=== PATIENT | female | born 1985 | race Caucasian/White ===

== ENCOUNTER 2022-09-29 13:00 | Emergency (ER) | payer BC, SELFPAY ==
[2022-09-29 13:23] VITALS: BP 99/62; PULSE 65; RESP 16; TEMP 37.3; O2SAT 99; BMI 19.4
--- NOTE | 2022-09-29 14:20 | ED_ITS ---
HPI - General Adult General Date Seen: 09/29/22 Chief complaint: Eye Problems Stated complaint: Post concussion tinnitus, blurred vision Time Seen by Provider: 09/29/22 13:30 Source: patient Mode of arrival: ambulatory Limitations: no limitations History of Present Illness HPI narrative: Patient is a 36-year-old woman who comes in because of concerns about her eyes. She starts by telling me that in March of 2021 she had a fall and a concussion. Apparently in January of 2022 she developed tinnitus and hyper accussis this in her right ear which she thinks was post concussive. She also developed some visual symptoms around that time. She says that her tinnitus had waxed and waned with hyperacusis this got worse and she just saw ENT a week ago and she was told that her hearing was slightly low but still in the normal range, the rest of her exam was normal, and she was prescribed prednisone as well as a muscle relaxer. She says she is going to get some sort of special headphones which are supposed to help with noise reduction but she will not have those for few weeks. A week ago, she was walking in [place], apparently her dogs are rabbit and took off. She was pulled to the ground, and says she was careful not to hit her head, but since then she has been having some symptoms which she worries might be related to concussion. She was seen in [facility] ER few days ago for these symptoms, but presents here today because she is noting photophobia and difficulty watching a cartoon with her daughter last night because she was having trouble tracking the figures on the TV. Drilling down on the real issue, she seems to have concerns that no one has done any imaging and that there might be something underlying all of this that has nothing to do with concussion. Related Data Home Medications Medication Instructions Recorded Confirmed benzoyl peroxide 5 % topical topical DAILY 09/29/22 cleanser clindamycin phosphate 1 % lotion topical DAILY 09/29/22 cyclobenzaprine 5 mg tablet 5 mg PO 3XD PRN 09/29/22 09/29/22 desonide 0.05 % topical ointment topical 09/29/22 prednisone 10 mg tablet 10 mg PO BID 09/29/22 09/29/22 tretinoin 0.025 % topical cream applic topical QPM 09/29/22 Allergies Allergy/AdvReac Type Severity Reaction Status Date / Time amoxicillin Allergy Mild Rash Verified 09/29/22 13:32 Review of Systems Status of ROS: Reports: 6 or more systems reviewed and unremarkable except as noted in History and below [facility] Social History Smoking Status: Never smoker Do you use any of these nicotine containing products: None How often do you have a drink containing alcohol: never AUDIT-C Alcohol total score: 0 Exam Narrative: Exam Narrative: Vital signs are within normal limits In general, alert, well-appearing woman. Head: Normocephalic, atraumatic. Eyes: Pupils are equal and reactive. Conjunctivae are normal. Extraocular movements are full. ENT: No facial trauma. Neurologic: She is alert, conversant, face symmetric. Gait stable. Affect: Normal, she does become somewhat tearful during our conversation. Const: Vital Signs, click to edit/add: Vital Signs - 24 hr 09/29/22 13:23 Temperature 99.2 F Pulse Rate [Right Pulse Oximeter] 65 Respiratory Rate 16 Blood Pressure [Ri ght Upper Arm] 99/62 Pulse Oximetry 99 Oxygen Delivery Me thod Room Air Course Course Hospital Course: She has had an eye exam within the last month which was normal. I explained her that I really not able to answer to the question as to whether not her photophobia might be related to this fall week ago. I do not have any reason to suspect serious head trauma. I think really what she probably needs is to see someone who can either determine that she needs additional workup or reassure her that her symptoms are benign and do not require any further evaluation. I have suggested that she see a neurologist, as I think if there is a specialty that will be able to decide whether imaging would be indicated they would be it. I discussed with her that the only imaging I have available here would be head CT and I do not think that is going to provide any valuable information. It does not sound as if further follow-up with ENT or ophthalmology will be helpful. She seems comfortable with the plan. Vital Signs Vital signs: Initial Vital Signs Temperature 99.2 F 09/29/22 13:23 Temperature Source Temporal Artery Scan 09/29/22 13:23 Pulse Rate 65 09/29/22 13:23 Respiratory Rate 16 09/29/22 13:23 Blood Pressure 99/62 07/15/23 13:23 Blood Pressure Mean 74 09/29/22 13:23 Blood Pressure Position Sitting 09/29/22 13:23 Pulse Oximetry 99 09/29/22 13:23 Oxygen Delivery Method Room Air 09/29/22 13:23 Vital Signs Temperature 99.2 F 09/29/22 13:23 Pulse Rate 65 09/29/22 13:23 Respiratory Rate 16 09/29/22 13:23 Blood Pressure 99/62 09/29/22 13:23 Pulse Oximetry 99 09/29/22 13:23 Oxygen Delivery Method Room Air 09/29/22 13:23 Temperature 99.2 F 09/29/22 13:23 Pulse Rate 65 09/29/22 13:23 Respiratory Rate 16 09/29/22 13:23 Blood Pressure 99/62 09/29/22 13:23 Pulse Oximetry 99 09/29/22 13:23 Oxygen Delivery Method Room Air 09/29/22 13:23 Discharge Plan Discharge Clinical Impression: Photophobia Patient Disposition: Home, Self-Care Condition: Stable Instructions: Photophobia (ED) Additional Instructions: I would recommend follow-up with [facility] for additional evaluation. Their phone number [phone], and they have multiple locations. In the meantime, it is fine to continue the medications that were prescribed by ENT, but be aware that the muscle relaxer may be contributing to your fatigue. Prescriptions: No Action prednisone 10 mg tablet 10 mg PO BID tretinoin 0.025 % cream topical QPM desonide 0.05 % ointment topical benzoyl peroxide 5 % cleanser topical DAILY clindamycin phosphate 1 % lotion topical DAILY cyclobenzaprine 5 mg tablet 5 mg PO 3XD PRN Stand Alone Forms: MyHealth Info Instructions
== END 2022-09-29 14:27 | disposition home or self-care (01) ==
LOC: ED 14:15
PROVIDERS: Emergency Provider Emergency Medicine
DX: H53.143 Visual discomfort, bilateral (principal)
CPT/HCPCS: 99282; 99283